=== PATIENT | male | born 1995 | race Caucasian/White ===

== ENCOUNTER 2019-10-04 07:30 | Emergency (ER) | payer OTHER ==
[2019-10-04 08:27] VITALS: BP 117/75
[2019-10-04] MEDS ORDERED: Gelfoam 12-7 ADSORBABL SPONGE* 1 EA SPONGE TOPICAL ONE (08:46)
[2019-10-04] MEDS ORDERED: Tetan/Diph/Pertus SYR(Tdap)* 0.5 ML SYR(BOOSTRIX) use SYR contains LATEX IM ONE (08:50)
--- NOTE | 2019-10-04 08:56 | UC ---
Laceration HPI - HPI Summary HPI Summary: 24-year-old male comes with a chief complaint of an injury to the right thumb. He was at work when he accidentally cut the tip of his right thumb on a piece of metal on a work truck. Bleeding stopped with direct pressure. It is painful to palpation and movement. Patient is not sure when his last tetanus was. - History Of Current Complaint Chief Complaint: UCLaceration Stated Complaint: WC-RT THUMB LACERATION Time Seen by Provider: 10/04/19 08:34 Pain Intensity: 8 - Allergies/Home Medications Allergies/Adverse Reactions: Allergies Allergy/AdvReac Type Severity Reaction Status Date / Time No Known Allergies Allergy Verified 10/04/19 07:51 Home Medications: Home Medications Ibuprofen TAB* [Advil TAB*] 600 mg PO Q6H PRN 10/04/19 [History Confirmed ] PMH/Surg Hx/FS Hx/Imm Hx Previously Healthy: Yes - Surgical History Surgical History: None - Family History Known Family History: Positive: Non-Contributory - Social History Alcohol Use: Occasionally Substance Use Type: None Smoking Status (MU): Light Every Day Tobacco Smoker Type: Cigarettes Amount Used/How Often: 1 pack weekly - Immunization History Most Recent Tetanus Shot: 5 years ago. Review of Systems All Other Systems Reviewed And Are Negative: Yes Constitutional: Positive: Negative Skin: Positive: Other - see hpi Eyes: Positive: Negative ENT: Positive: Negative Respiratory: Positive: Negative Cardiovascular: Positive: Negative Gastrointestinal: Positive: Negative Motor: Positive: Negative Neurovascular: Positive: Negative Musculoskeletal: Positive: Negative Neurological: Positive: Negative Psychological: Positive: Negative Is Patient Immunocompromised?: No Physical Exam Triage Information Reviewed: Yes Appearance: Well-Appearing, Well-Nourished, Pain Distress - mild with rom and exam of rt thumb Vital Signs: Initial Vital Signs Temp 98.9 F 10/04/19 07:52 Pulse 98 10/04/19 07:52 Resp 16 10/04/19 07:52 BP 117/75 10/04/19 07:52 Pulse Ox 98 10/04/19 07:52 Vital Signs Reviewed: Yes Eye Exam: Normal Eyes: Positive: Conjunctiva Clear Neck: Positive: Supple Respiratory: Positive: No respiratory distress Musculoskeletal: Positive: Strength Intact Neurological: Positive: Alert Psychological: Positive: Age Appropriate Behavior Skin: Positive: Other - There is a 1 cm diameter avulsion laceration of the tip of the right thumb. There is no edges to suture together. Bleeding is stopped after cleaning. Laceration Course/Dx - Course/Dx Course Of Treatment: Because the laceration was an avulsion and suturing would not help, Gelfoam was placed on the wound by nursing and a dressing was placed by nursing after cleaning of the wound. Patient was given his T dap here in clinic. I'm recommending no use of the right hand until cleared by medical provider. Patient will follow-up with Dr. Lowery and occupational medicine. - Diagnosis Provider Diagnosis: Laceration of thumb, right Discharge ED - Sign-Out/Discharge Documenting (check all that apply): Patient Departure All imaging exams completed and their final reports reviewed: No Studies - Discharge Plan Condition: Stable Disposition: HOME Patient Education Materials: Finger Laceration (ED) Referrals: Calvin Lowery MD [Medical Doctor] - Additional Instructions: FOLLOW UP WITH DR LOWERY, OCCUPATIONAL MEDICINE. YOU HAD THE TDAP (TETANUS/DIPTHERIA/PERTUSSIS) IMMUNIZATION TODAY IN CLINIC. GET REEVALUATED SOONER IF NOT IMPROVING OR WORSE; PAIN, SIGNS OF INFECTION OR ANY QUESTIONS OR CONCERNS. - Billing Disposition and Condition Condition: STABLE Disposition: Home
== END 2019-10-04 09:15 | disposition home or self-care (01) ==
LOC: UCCORT 07:30
DX: S61.011A Laceration without foreign body of right thumb without damage to nail, initial encounter (principal); Z23 Encounter for immunization; F17.210 Nicotine dependence, cigarettes, uncomplicated; W26.8XXA Contact with other sharp object(s), not elsewhere classified, initial encounter; Y92.812 Truck as the place of occurrence of the external cause
CPT/HCPCS: 90471; 90715; 99202; A9270-GY; G0463